=== PATIENT | female | born 1980 | race Caucasian/White ===

== ENCOUNTER 2018-01-22 02:06 | Inpatient (IN) | payer OTHER ==
[~2018-01-22] VITALS: Ht 172.7 cm; Wt 146.6 kg
[~2018-01-22 02:06] MED LIST: LISINOPRIL20 M1 PO; OMEPRAZOLE20 M3 PO
--- NOTE | 2018-01-22 17:12 | Operative Report ---
Operative/Inv Procedure Report Surgery Date: 01/22/18 Name of Procedure: Laparoscopic Sleeve Gastrectomy Pre-Operative Diagnosis: Morbid Obesity BMI 51, HTN, JERMAINE, GERD Post-Operative Diagnosis: Same Estimated Blood Loss: less than 50ml Surgeon/Robotic Weld Technician: Romeo Howard DO Anesthesia: general endotracheal tube IV Fluids: 1500 cc Drains: None Specimens: Stomach Complications: None Condition: Stable Operative Indication: This is a 37-year-old female that presented to the office for workup for bariatric surgery. After appropriate workup was completed I discussed with the patient the band, the sleeve, and the gastric bypass. The patient chose to undergo a sleeve gastrectomy. All risks including but not limited to bleeding, infection, leak, stricture, injury to surrounding bowel/esophagus/stomach/liver/ spleen, long-term reflux, DVT/PE, and mortality of 08/999 patients were discussed in detail. The patient understood everything and decided to proceed. Operative/Procedure Note Note: The patient was brought to the operating room and placed on the operating room table in supine position. Venodyne stockings were placed and adequate general endotracheal anesthesia was obtained. The patient was prepped and draped in standard surgical fashion. Began the procedure by making a 2 cm transverse incision supraumbilically and slightly to the left of the midline. Then using a 12 mm clear Visiport and a 10 mm 0 laparoscope, the abdominal cavity was accessed. Great care was taken to go through the anterior rectus sheath, the posterior rectus sheath, and through the peritoneum. Once we entered the peritoneum the abdominal cavity was insufflated to 15 mmHg. Upon initial examination no obvious gross pathology was seen. Accessory trocars were placed, 5 mm in the epigastrium for the Maged liver retractor. The retractor was inserted and the liver was retracted anteriorly exposing the hiatus, no hiatal hernia was seen. 5 mm ports were placed in the right and left upper quadrant, a 5 mm left lateral port, and a 15 mm right lateral port. Began the procedure by mobilizing the greater curvature of the stomach approximately 7 cm from the pylorus. Once the retrogastric space was reached the whole greater curvature was mobilized maintaining hemostasis using Harmonic scalpel. Full hiatal dissection was performed, no hiatal hernia was seen. Posterior adhesions were taken down using Harmonic scalpel as well. Once the stomach was adequately mobilized a 38 Icelandic bougie was inserted and placed along the lesser curvature of the stomach. Once the bougie was in the appropriate position we began creating our sleeve, two 60 mm black staple loads with seamguard followed by three 60 mm purple staple loads with seamguard as well and finished with a 45 mm purple load plain. Great care was taken to leave ample room at the incisura angularis, to prevent any twisting or kinking of the sleeve, to stay lateral to the esophagogastric fat pad, and to do a full fundal excision. At the completion of the staple line the staple line was examined, it appeared intact and no obvious bleeding was noted. The bougie was removed, the sleeve was lying nicely without any twisting or kinking. The resected stomach was removed through the right lateral port site. The port and the left upper quadrant were irrigated until clear. All ports were removed under direct visualization no obvious bleeding was noted. The 15 mm port site fascia was closed using 0 Vicryl suture. The skin was closed using 4-0 Monocryl. Steri-Strips and dressings were placed. The patient was successfully extubated and transferred to the recovery room in stable condition. The patient tolerated the procedure well with no complications. Findings: No hiatal hernia, 38 Fr bougie CC: Brenda CARMONA,Brenda
--- NOTE | 2018-01-22 18:05 | Admission Core Measures ---
Acute Coronary Syndrome (CM) ACS Core Measures Acute Coronary Syndrome Diagnosis No Congestive Heart Failure (NEW) CHF Core Measures Congestive Heart Failure Diagnosis No Cerebrovascular Accident CVA Core Measures CVA/TIA Diagnosis No Venous Thromboembolism VTE Core Johnny (View Protocol) VTE Risk Factors Surgery No Mechanical VTE Prophylaxis d/t N/A MechProphylax Ordered No VTE Pharm Prophylaxis d/t NA PharmProphylax ordered Problem List As ranked by this Provider includes Assessment & Plan 1. JERMAINE (obstructive sleep apnea) 2. Morbid obesity with BMI of 50.0-59.9, adult 3. GERD (gastroesophageal reflux disease) 4. HTN (hypertension) HOME MEDS Home Med List Lisinopril 20 MG TABLET 1 TAB PO DAILY HTN (Reported) Omeprazole 20 MG TABLET.DR 1 TAB PO DAILY GERD (Reported)
[2018-01-22 18:40] VITALS: BP 150/90
[2018-01-22 20:54] VITALS: BP 170/90
--- NOTE | 2018-01-22 21:00 | PN- Bariatrics ---
Subjective Subjective: POC some postop n/v, better after zofran but still nauseous. some gas pains, no hallway ambulation, but oob to toilet x3, +void, no cp/sob. Objective Vital Signs and I&Os Vital Signs Date Time Temp Pulse Resp B/P B/P Pulse O2 O2 Flow FiO2 Mean Ox Delivery Rate 01/22 2054 97.9 94 18 170/90 99 Room Air Physical Exam: gen- nad card- s1s2 pulm- ctab abd- obese, soft, nt, incisions dressed- 2 luq dressings with serosang staining ext- alps on, calves soft nt Assessment/Plan Assessment/Plan A- POD0 sp lap gastric sleeve for mo- bmi 51, htn, los and gerd, with some postop n/v and htn, otherwise stable. P- prn antiemetics home antihtn med now stg1 bambi diet, then npo p mn for ?ugi in am prn pain meds i&os am labs hep sq now, lovenox in am if labs ok oob, ambulate will dw attending Core Measures Venous Thromboembolism VTE Risk Factors Surgery No Mechanical VTE Prophylaxis d/t N/A MechProphylax Ordered No VTE Pharm Prophylaxis d/t NA PharmProphylax ordered
[2018-01-22 23:24] VITALS: BP 170/70
[2018-01-23 03:24] VITALS: BP 164/86
[2018-01-23 06:51] VITALS: BP 168/90
[2018-01-23 07:59] LABS: ABSOLUTE BASOPHIL COUNT 0 /CUMM (0.0-0.2); ABSOLUTE EOSINOPHIL COUNT 0 /CUMM (0.0-0.7); ABSOLUTE GRANULOCYTE CT 8.2 /CUMM (1.4-6.5); ABSOLUTE LYMPH COUNT 0.5 /CUMM (1.2-3.4); ABSOLUTE MONOCYTE COUNT 0.2 /CUMM (0.10-0.60); BASOPHIL % 0.4 % (0.0-2.0); EOSINOPHIL % 0 % (0-5); HEMATOCRIT 37.9 % (37-47); MEAN CORPUSCULAR HGB 30.5 PG (27.0-31.0); MEAN CORPUSCULAR HGB CONC 34.6 G/DL (33.0-37.0); MEAN CORPUSCULAR VOLUME 88.1 FL (81.0-99.0); MEAN PLATELET VOLUME 9.3 FL (7.4-10.4); PLATELET COUNT 323 /CUMM (130-400); RBC DISTRIBUTION WIDTH 13.4 % (11.5-14.5); WHITE BLOOD CELL COUNT 8.9 /CUMM (4.8-10.8)
--- NOTE | 2018-01-23 08:00 | PN- Bariatrics ---
See Addendum Subjective Subjective: Reports 2 episodes of vomiting, describes it as bilious and blood tinged. Unrelated to medication or liquid diet. Improved with Zofran. Reports voiding and ambulated yesterday. Denies passing flatus. Reports pain controlled. Offers no other complaints. Objective Vital Signs and I&Os Vital Signs Date Time Temp Pulse Resp B/P B/P Pulse O2 O2 Flow FiO2 Mean Ox Delivery Rate 01/23 0651 98.2 82 18 168/90 98 Room Air 01/23 0324 98.4 89 18 164/86 96 Room Air 01/22 2324 98.3 96 18 170/70 96 Room Air 01/22 2104 95 170/90 01/22 2054 97.9 94 18 170/90 99 Room Air 01/22 1840 98.4 108 18 150/90 97 Room Air Intake & Output 01/23 0800 01/23 0000 01/22 1600 01/22 0800 01/22 0000 01/21 1600 Intake Total 750 795 Output Total 1000 1780 Balance -250 -985 Intake, IV 750 645 Intake, Oral 150 Number 0 Bowel Movements Output, 80 Emesis Output, Urine 1000 1700 Patient 323 lb 326 lb Weight Weight Reported by Patient Measurement Method Physical Exam: Gen - resting comfortably in NAD Card - s1s2 Lungs - CTAB Abd - obese, soft, [address], 2 luq dressings stained with with serosang drainage, nontender no rebound or guarding Ext - alps in place, no signifcant edema or calf tenderness Assessment/Plan Assessment/Plan 37 morbidly obese F with HTN, JERMAINE, GERD who is POD 1 s/p lap gastric sleeve with postop nausea and vomiting Keep NPO on IVF Cont postop abx x2 UGI this morning Analgesics/antiemetics prn Home med on board Cont hsq, lovenox in am if labs ok Encourage ambulation, IS F/u am labs Lovenox teaching Will d/w Dr. Howard Core Measures Venous Thromboembolism VTE Risk Factors Surgery No Mechanical VTE Prophylaxis d/t N/A MechProphylax Ordered No VTE Pharm Prophylaxis d/t NA PharmProphylax ordered
[2018-01-23 09:42] LABS: GRANULOCYTE % 91.6 % (42.2-75.2)
[2018-01-23 10:21] VITALS: BP 162/82
--- NOTE | 2018-01-23 10:29 | RADIOLOGY REPORT ---
EXAMINATION: FLUOROSCOPY UPPER GI WITH GASTROGRAFIN WITH KUB CLINICAL INFORMATION: 1 day status post gastric sleeve procedure. Postoperative evaluation for leak/stricture. Pain, nausea and vomiting. COMPARISON: None. TECHNIQUE: A preliminary biomass technician view of the abdomen was performed on 2 images. A limited Gastrografin upper GI study was performed using 30 ml of Gastroview with the patient in the semiupright position. Multiple (9) spot films and one cine fluoroscopy runs were acquired. FINDINGS: The preliminary biomass technician views of the abdomen demonstrates faint postsurgical suture line in the epigastric region. Postcholecystectomy jina and jina projected over the right iliac crest are also seen in place. Normal bowel gas pattern is seen without abnormal bowel distention noted. Esophageal distensibility and motility is normal. The GE junction is located below the level of the diaphragm and no GE reflux seen. The remnant gastric pouch is normal with no abnormal distention or contrast leak seen. There is prompt emptying of contrast into the duodenum, which is unremarkable in appearance. FLUOROSCOPY TIME: 43 seconds. IMPRESSION: Unremarkable examination with no evidence of contrast leak or gastric outlet obstruction.
[2018-01-23 14:40] VITALS: BP 158/80
[2018-01-23 21:59] VITALS: BP 148/88
[2018-01-24 06:25] VITALS: BP 144/78
--- NOTE | 2018-01-24 07:44 | PN- Bariatrics ---
Subjective Subjective: Some epigastric discomfort and intermittent nausea. Tolerating stage 1 diet. Passing flatus and +bm. Voiding without difficulty. Ambulating well. No dizziness. No shortness of breath. No chest pains. She has been taught lovenox injections, and has prescription filled for this already. Objective Vital Signs and I&Os Vital Signs Date Time Temp Pulse Resp B/P B/P Pulse O2 O2 Flow FiO2 Mean Ox Delivery Rate 01/24 0625 98.3 78 18 144/78 96 Room Air 01/23 2159 98.5 83 18 148/88 96 Room Air 01/23 1600 Room Air 01/23 1440 98.6 81 18 158/80 99 Room Air 01/23 1021 98.5 75 18 162/82 99 Room Air 01/23 0946 Room Air 01/23 0907 128/78 01/23 0800 Room Air Intake & Output 01/24 0800 01/24 0000 01/23 1600 01/23 0800 01/23 0000 01/22 1600 Intake Total 270 700 460 750 795 Output Total 400 819 551 2517 1780 Balance -130 200 -190 -650 -985 Intake, IV 100 750 645 Intake, Oral 270 700 360 0 150 Number 0 0 0 Bowel Movements Output, 50 80 Emesis Output, Urine 400 906 045 5339 1700 Patient 323 lb 326 lb Weight Weight Reported by Patient Measurement Method Physical Exam: General - alert & oriented x 3. comfortable. no acute distress. Lungs - clear bilaterally. no w/r/r. Cardiac - s1s2. reg. Abdomen - soft. dressings c/d/i. expected christopher-incisional tenderness. no drains. Extremities - warm bilaterally. no c/c/e. calves soft and nontender b/l. Current Medications: Current Medications Sig/Kris Start time Last Medication Dose Route Stop Time Status Admin Cefazolin Sodium 3,000 MG IQ8 01/23 0000 DC 01/23 Sodium Chloride 100 ML IV 01/23 0859 0843 Famotidine 20 MG Q12 01/22 2100 AC 01/23 IV 2051 Heparin Sodium 5,000 UNIT Q8 01/22 2200 AC 01/24 (Porcine) SC 0511 Hydrocodone Bitart/ 15 ML Q6P PRN 01/22 1845 AC 01/23 Acetaminophen PO 1557 Hydrocodone Bitart/ 30 ML Q6P PRN 01/22 1845 AC 01/24 Acetaminophen PO 0546 Ketorolac 15 MG Q6 01/22 1800 DC 01/23 Tromethamine IV 01/23 1201 1229 Lisinopril 20 MG DAILY 01/23 0900 DC PO Lisinopril 20 MG DAILY 01/22 2100 AC 01/23 PO 0907 Morphine Sulfate 2 MG Q2P PRN 01/22 1845 AC 01/23 IV 2047 Ondansetron HCl 4 MG Q6P PRN 01/22 1800 AC 01/24 IV 0113 Patient Medication 1 ED ONE ONE 01/23 1645 DC 01/23 Teaching ED 01/23 1646 2051 Promethazine HCl 12.5 MG Q6-PRN PRN 01/22 2145 AC 01/24 IV 01/29 214 0541 Simethicone 40 MG Q6P PRN 01/22 184 AC 01/23 PO 2148 Trimethobenzamide HCl 200 MG 4 TIMES/DAY PRN 01/22 1945 AC 01/22 IM 2257 Results Last 48 Hours of Labs: Laboratory Tests 01/23 01/22 0655 1245 Chemistry Sodium (137 - 145 mmol/L) 138 Potassium (3.5 - 5.1 mmol/L) 4.4 Chloride (98 - 107 mmol/L) 102 Carbon Dioxide (22 - 30 mmol/L) 19 L Anion Gap (5 - 16) 16 BUN (7 - 17 mg/dL) 6 L Creatinine (0.5 - 1.0 mg/dL) 0.5 Estimated GFR (>60 ml/min) > 60 BUN/Creatinine Ratio (7 - 25 %) 12.0 Hematology CBC w Diff NO MAN DIFF REQ WBC (4.8 - 10.8 /CUMM) 8.9 RBC (4.20 - 5.40 /CUMM) 4.30 Hgb (12.0 - 16.0 G/DL) 13.1 Hct (37 - 47 %) 37.9 MCV (81.0 - 99.0 FL) 88.1 MCH (27.0 - 31.0 PG) 30.5 MCHC (33.0 - 37.0 G/DL) 34.6 RDW (11.5 - 14.5 %) 13.4 Plt Count (130 - 400 /CUMM) 323 MPV (7.4 - 10.4 FL) 9.3 Gran % (42.2 - 75.2 %) 91.6 H Lymphocytes % (20.5 - 51.1 %) 5.4 L Monocytes % (1.7 - 9.3 %) 2.6 Eosinophils % (0 - 5 %) 0 Basophils % (0.0 - 2.0 %) 0.4 Absolute Granulocytes (1.4 - 6.5 /CUMM) 8.2 H Absolute Lymphocytes (1.2 - 3.4 /CUMM) 0.5 L Absolute Monocytes (0.10 - 0.60 /CUMM) 0.2 Absolute Eosinophils (0.0 - 0.7 /CUMM) 0 Absolute Basophils (0.0 - 0.2 /CUMM) 0 Urines Urine Test NEGATIVE Assessment/Plan Assessment/Plan This 37 year old female with hx morbid obesity (BMI 51), HTN, JERMAINE, and GERD, is POD#2 s/p lap sleeve gastrectomy tolerating stage 1 diet zofran prn nausea hep sc - dvt ppx pepcid iv - gi ppx oob/ambulating without difficulty continue lisinopril at home d/c home today will d/w Core Measures Venous Thromboembolism VTE Risk Factors Surgery No Mechanical VTE Prophylaxis d/t N/A MechProphylax Ordered No VTE Pharm Prophylaxis d/t NA PharmProphylax ordered
--- NOTE | 2018-01-24 07:44 | Surg Short-stay <48hrs Dis Sum ---
Visit Information Visit Dates Admission Date: 01/22/18 Discharge Date: 01/24/18 Surgical Short Stay DC Summary Admission Diagnosis: Morbid Obesity BMI 51, HTN, JERMAINE, GERD Final Diagnosis: same as above, s/p Surgery Date: 01/22/18 Name of Procedure: Laparoscopic Sleeve Gastrectomy Procedure(s): Surgery Date: 01/22/18 Name of Procedure: Laparoscopic Sleeve Gastrectomy Summary/Significant Findings: Electively scheduled laparoscopic sleeve gastrectomy on 01/22/18 for history of morbid obesity (BMI 51), HTN, JERMAINE, and GERD. Started on stage 1 bariatric diet, which she has been tolerating with some nausea. Upper gi study done on post-op day#1 negative for leak and obstruction. Lovenox teaching done prior to discharge, for continued home prophylaxis. Lisinopril to be continued for her ongoing hypertension. Condition at Discharge: stable Discharge Disposition: home or self care Discharge instructions provided to patient/family: Yes Post discharge follow-up plan: one week follow up with continue lovenox injections, as directed Copies to: Brenda CARMONA,Brenda
--- NOTE | 2018-01-24 07:49 | Patient Discharge Instructions ---
Discharge Instructions General Discharge Information You were seen/treated for: Morbid Obesity (BMI 51), HTN, JERMAINE, GERD You had these procedures: Surgery Date: 01/22/18 Name of Procedure: Laparoscopic Sleeve Gastrectomy Watch for these problems: fever>101.3, increased pain, redness/swelling/drainage, shortness of breath, chest pains, dizziness No bath, but you may shower: Yes Other wound care: ok to remove outer dressings. leave white steri strips in place. Special Instructions: continue lovenox injections, as prescribed Diet Continue normal diet: No Recommended Diet: Bariatric Additional DIET Information: weekly bariatric stage diet advancement as directed, as tolerated Activity Full Activity/No Limits: No Activity Self Limited: Yes Pounds, do NOT lift more than: 10 Other activity limits: walk frequently Acute Coronary Syndrome Inclusion Criteria At DC or during hospital stay patient has or had the following: ACS DIAGNOSIS No Discharge Core Measures Meds if any: Prescribed or Continued at Discharge Meds if any: NOT Prescribed or Continued at Discharge Congestive Heart Failure Inclusion Criteria At DC or during hospital stay patient has or had the following: CHF DIAGNOSIS No Discharge Core Measures Meds if any: Prescribed or Continued at Discharge Meds if any: NOT Prescribed or Continued at Discharge Cerebrovascular accident Inclusion Criteria At DC or during hospital stay patient has or had the following: CVA/TIA Diagnosis No Discharge Core Measures Meds if any: Prescribed or Continued at Discharge Meds if any: NOT Prescribed or Continued at Discharge Venous thromboembolism Inclusion Criteria VTE Diagnosis No VTE Type NONE VTE Confirmed by (Test) NONE Discharge Core Measures - Per Current guidelines, there needs to be overlap - treatment for the first 5 days of Warfarin therapy. - If discharged on Warfarin prior to 5 days of - overlap therapy, the patient will need to be - assessed for post discharge needs including - *Post discharge parental anticoagulation - *Warfarin and/or parental anticoagulation education - *Follow up date to check INR post discharge At least 5 days overlap therapy as Inpatient No Meds if any: Prescribed or Continued at Discharge Note: Overlap Therapy is Warfarin and Anticoagulant Meds if any: NOT Prescribed or Continued at Discharge
[2018-01-24] MEDS ORDERED: HYDROCODON-ACET15 ML PO (07:56)
[2018-01-24] MEDS ORDERED: LOVENOX40 MG/0.1 SC (07:56)
[2018-01-24] MEDS ORDERED: ZOFRAN ODT4 M1 SL (07:57)
[2018-01-24 08:53] VITALS: BP 144/78
== END 2018-01-24 11:58 | DRG 403 ==
LOC: SDA 02:06 → 2NB 02:06 → ENRESERV 17:46 → ENTRNSPT 18:23 → EDTRNSPTSTS 18:32 → 2NB 18:41 → CMPTRNSPT 18:53 → ENPENDDIS 01-24 08:51 → ENTRNSPT 01-24 11:45 → EDTRNSPT 01-24 11:48 → EDTRNSPTSTS 01-24 11:48 → EDTRNSPT 01-24 11:49 → 2NB 01-24 11:58 → CMPTRNSPT 01-24 12:09
PROVIDERS: Physician Assistant Surgical
PROC: 0DB64Z3 Excision of Stomach, Percutaneous Endoscopic Approach, Vertical (ICD-10-PCS; principal; 2018-01-22)
DX: E66.01 Morbid (severe) obesity due to excess calories (principal); Z68.43 Body mass index [BMI] 50.0-59.9, adult; I10 Essential (primary) hypertension; K21.9 Gastro-esophageal reflux disease without esophagitis; G47.33 Obstructive sleep apnea (adult) (pediatric)
CPT/HCPCS: 2NBP; 36415; 74240; 81025; 82436; 88307; J0131; J0690; J1100; J1644; J1885; J2405; J2550; J3250; J3490; J7042; S5012